=== PATIENT | male | born 1995 | race Caucasian/White ===

== ENCOUNTER 2021-03-31 15:45 | Emergency (ER) | payer BC, OTHER ==
[~2021-03-31] VITALS: Ht 167.6 cm; Wt 95.8 kg
[2021-03-31 16:30] LABS: BASO # 0.1 10^3/uL (0.0-0.2); BASO % 1.6 % (0.0-1.0); EOS # 0.6 10^3/uL (0.0-0.5); EOS % 6.9 % (0.0-3.0); HEMATOCRIT 46.8 % (42.0-52.0); HEMOGLOBIN 15.4 g/dl (13.5-17.5); LYMPH # 2.9 10^3/uL (1.5-5.0); LYMPH % 35.8 % (24.0-44.0); MEAN CORPUSCULAR HEMOGLOBIN 29.2 pg (27.0-33.0); MEAN CORPUSCULAR HGB CONC 32.9 g/dl (32.0-36.5); MEAN CORPUSCULAR VOLUME 88.6 fl (80.0-96.0); MONO # 0.8 10^3/uL (0.0-0.8); MONO % 9.5 % (2.0-8.0); NEUTROPHILS # 3.7 10^3/uL (1.5-8.5); NEUTROPHILS % 46.1 % (36.0-66.0); PLATELET COUNT, AUTOMATED 236 10^3/uL (150-450); RED BLOOD COUNT 5.28 10^6/uL (4.30-6.10)
[2021-03-31 16:56] LABS: ALBUMIN 3.8 GM/DL (3.2-5.2); ALT/SGPT 129 U/L (12-78); BILIRUBIN,DIRECT 0.2 MG/DL (0.0-0.2); BILIRUBIN,TOTAL 0.4 MG/DL (0.2-1.0); BLOOD UREA NITROGEN 19 MG/DL (7-18); CARBON DIOXIDE LEVEL 28 MEQ/L (21-32); CHLORIDE LEVEL 108 MEQ/L (98-107); GLOMERULAR FILTRATION RATE > 60.0 (>60); GLUCOSE, FASTING 106 MG/DL (70-100); LIPASE 153 U/L (73-393); POTASSIUM SERUM 4.1 MEQ/L (3.5-5.1); SODIUM LEVEL 142 MEQ/L (136-145); TOTAL PROTEIN 6.8 GM/DL (6.4-8.2)
[2021-03-31 17:58] LABS: C REACTIVE PROTEIN QUANTITATIV < 0.30 MG/DL (0.00-0.30)
[2021-03-31 18:40] LABS: INR 0.89; PARTIAL THROMBOPLASTIN TIME 24.4 SECONDS (24.2-38.5); PROTHROMBIN TIME 12.2 SECONDS (12.5-14.3)
--- NOTE | 2021-03-31 18:47 | REP ---
INDICATION: elevated LFTs. COMPARISON: 02/28/2016. TECHNIQUE: Real-time sonographic evaluation of right upper quadrant performed. FINDINGS: The gallbladder demonstrates no evidence of intraluminal sludge or calculi, wall thickening or pericholecystic fluid. There is no intrahepatic or extrahepatic biliary dilatation, common bile duct measures 4 mm in maximum diameter. The liver demonstrates homogeneous echotexture with no gross mass. Visualized pancreas is grossly unremarkable, not well seen due to overlying bowel gas. The right kidney demonstrates no hydronephrosis, with a normal size of 11.4 cm in length. No free fluid is seen. IMPRESSION: Negative right upper quadrant ultrasound. <Electronically signed by Kofi Martinez > 03/31/21 [id number]
[2021-03-31] MEDS ORDERED: ANUS25SU PR (19:06)
[2021-03-31 19:16] VITALS: BP 123/65
[2021-03-31 21:16] LABS: ERYTHROCYTE SEDIMENTATION RATE 1 mm/hr (0-15)
== END 2021-03-31 19:18 | disposition home or self-care (01) ==
LOC: M ED 15:45
DX: K62.5 Hemorrhage of anus and rectum (principal); R94.5 Abnormal results of liver function studies; R53.83 Other fatigue; R53.81 Other malaise; Z88.0 Allergy status to penicillin; Z88.2 Allergy status to sulfonamides

== ENCOUNTER → 2021-08-30 | Outpatient (REF) | payer BC ==
[~2021-08-30] MED LIST: ANUS25SU PR
== END ==
LOC: M SFHCCLAY 10:02
PROVIDERS: ATTEND Physician Assistant
DX: R09.81 Nasal congestion (principal)

== ENCOUNTER → 2021-10-15 | Outpatient (REF) | payer BC ==
[2021-10-15 16:28] LABS: INR 0.92; PROTHROMBIN TIME 12.8 SECONDS (12.7-14.5)
[2021-10-15 16:53] LABS: ALT/SGPT 53 U/L (12-78); BILIRUBIN,DIRECT 0.2 MG/DL (0.0-0.2); BILIRUBIN,TOTAL 0.6 MG/DL (0.2-1.0); IRON (FE) 84 UG/DL (65-175); PERCENT SATURATION 25.7 % (19.7-50.0); TOTAL IRON BINDING CAPACITY 327 UG/DL (250-450); TOTAL PROTEIN 7.2 GM/DL (6.4-8.2)
[2021-10-15 17:17] LABS: HEPATITIS B SURFACE ANTIGEN NEGATIVE (NEGATIVE)
[2021-10-15 17:43] LABS: HEPATITIS B CORE ANTIBODY IGM NEGATIVE (NEGATIVE); HEPATITIS C VIRUS ABY INDEX 0.1 INDEX (<0.8)
[2021-10-19 05:07] LABS: ALPHA 1 ANTITRYPSIN 111 mg/dL (95-164); ANCA-ATYPICAL <1:20 titer (Neg:<1:20); ANTI-MITOCHONDRIAL ANTIBODY <20.0 Units (0.0-20.0); ANTINUCLEAR ANTIBODIES DIRECT Negative (Negative); CERULOPLASMIN 19.1 mg/dL (16.0-31.0); COPPER PLASMA 85 ug/dL (63-121); CYTOPLASMIC NEUTROP AB ANCA-C <1:20 titer (Neg:<1:20); LIVER-KIDNEY MICROSOMAL ABY <20.1 Units (0.0-20.0); PERINUCLEAR AB ANCA-P <1:20 titer (Neg:<1:20); TISSUE TRANSGLUTAMINASE IgA <2 U/mL (0-3)
== END ==
LOC: M LABDRAWC 15:42
PROVIDERS: ATTEND Internal Medicine Gastroenterology
DX: K62.5 Hemorrhage of anus and rectum (principal)

== ENCOUNTER → 2021-10-16 | Outpatient (CLI) | payer BC ==
[~2021-10-16] MED LIST changes: +PROHANCE 279.3MG/ML 15ML VIAL As Ordered ONE; +PROHANCE 279.3MG/ML 5ML VIAL As Ordered ONE
== END ==
LOC: M RAD 09:08
PROVIDERS: ATTEND Internal Medicine Gastroenterology
DX: R94.5 Abnormal results of liver function studies (principal)
CPT/HCPCS: 74183; A9576; C8902

== ENCOUNTER → 2021-10-17 | Outpatient (CLI) | payer BC ==
[~2021-10-17] MED LIST changes: -PROHANCE 279.3MG/ML 15ML VIAL As Ordered ONE; -PROHANCE 279.3MG/ML 5ML VIAL As Ordered ONE
== END ==
LOC: M LABSMTC 10:28
PROVIDERS: ATTEND Anesthesiology
DX: Z01.812 Encounter for preprocedural laboratory examination (principal); Z20.822 Contact with and (suspected) exposure to COVID-19

== ENCOUNTER 2021-10-22 11:11 | Day surgery (SDC) | payer BC ==
[~2021-10-22] VITALS: Ht 177.8 cm; Wt 94.3 kg
[~2021-10-22 11:11] MED LIST changes: +NS 1,000 ML IV ONE
--- OUTSIDE RECORDS SUMMARY | 2021-10-22 11:17 | CCD ---
Author Author [facility] Organization [facility] Address Unknown Phone Unavailable Care Team Providers Care School Bus Driver Name Role Phone Wallace Mendoza Unavailable PROBLEMS Type Condition ICD9-CM Code CED94-KI Code Onset Dates Condition S tatus W/U Status Risk SNOMED Code Notes Problem Dorsalgia, unspecified M54.9 Active confirmed 248660169 Problem Other chronic pain G89.29 Active confirmed 8 1621571 Problem Cigarette nicotine dependence in remission F17.211 Active confirmed 650140764 ALLERGIES Allergen (clinical drug ingredient) Drug/Non Drug Allergy do cumented on EMR Reaction Allergy Type Onset Date Status Sulfasalazine Sulfa Antibiotics Anaphylaxis Drug Allergy A ctive penicillin V Penicillin V Potassium([facility] Code:[address]-93) A naphylaxis Drug Allergy Active ENCOUNTERS from 1995 to 2021-09-03 Encounter Location Date Provider Diagnosis [address] [phone] [place] [address] Aug, Wallace Mendoza Nasal congestion R09.81 ; Cough R05.9 an d Exposure to COVID-19 virus Z20.822 IMMUNIZATIONS No Information SOCIAL HISTORY Tobacco Use: Social History Observation Description Date Details (start date - stop date) Former Smoker Sex Assigned At : Social History Observation Description Sex Assigned At Unknown Education: Question Answer Notes Level of Education: Finished High School Audit Question Answer Notes Total Score: 4 Interpretation: Alcohol Education Language: Question Answer Notes Languages spoken: Latvian Tenriism: Question Answer Notes Tenriism 33 None Sexual Hx: Question Answer Notes Had sex in the last 12 months (vaginal, oral, or anal)? Yes Have you ever had an STD? No Prevention Strategies discussed: Other with Women only Use protection? Yes How often? Most of the time Drug and Alcohol Question Answer Notes Total Score: 1 Interpretation: Low level Alcohol Screening: Question Answer Notes Did you have a drink containing alcohol in the past year? Ye s Points 5 Interpretation Positive How often did you have six or more drinks on one occas ion in the past year? Less than monthly (1 point) How many drinks did you have on a typica l day when you were drinking in the past year? 7 to 9 (3 points) How often did you have a drink containing alcohol in t he past year? Monthly or less (1 point) Tobacco Use: Question Answer Notes Are you a: former smoker Quit Nov 2020 How long has it been since you last smoked? 6-12 months REASON FOR REFERRAL No Information VITAL SIGNS Weight 206 lbs Aug, Height 5' 8" in Aug, BMI 31.32 kg/m2 Aug, Heart Rate 82 /min Aug, Respiratory Rate 18 /min Aug, Temperature 98.5 degrees Fahrenheit Aug, Oximetry 98 Aug, Blood pressure systolic 122 mm Hg Aug, Blood pressure diastolic 74 mm Hg Aug, MEDICATIONS No Known Medications PROCEDURES No Information RESULTS Component Value Reference Range THEE COVID AG (Point of Care) Reviewed date:08/30/2021 11:36:17 Interpretation:Negative Performing Lab:[facility], RALS INTERFACE [address] [place] [id number] , ,[facility]01 THEE COVID ANTIGEN NEGATIVE NEGATIVE Coronavirus 2018 NOSE (Send Out) COVID Reviewed date:09/02/2021 09:44:43 Interpretation:Negative Performing Lab:[facility], BIOREFERENCE LABORATORY [address] [place] [address] , ,[facility] CORONAVIRUS 2019 NOSE ASSAY INFORMATION: Real Time RT-PCR CORONAVIRUS 2019 NOSE NOTE: The COVID-19 assay has been cleared by the U.S. Food and Drug CORONAVIRUS 2019 NOSE Administration under the Dora rgency Use Authorization (EUA). [facility] CORONAVIRUS 2019 NOSE Laboratories and [facility] are designated as high complexity laboratories by the CORONAVIRUS 2019 NOSE Clinical Laboratory Improve ent Amendments of 1988(CLIA) and are qualified to CORONAVIRUS 2019 NOSE perform this test. CORONAVIRUS 2019 NOSE CORONAVIRUS 2019 NOSE Not Detected CORONAVIRUS 2019 NOSE REASON FOR VISIT COVID exposure/ symptoms MEDICAL (GENERAL) HISTORY Type Description Date Surgical History No Surgical history information Goals Section No Information Health Concerns No Information MEDICAL EQUIPMENT No Information MENTAL STATUS No Information FUNCTIONAL STATUS No Information ASSESSMENTS Encounter Date Diagnosis Assessment Notes Treatment Notes Treat ent Clinical Notes Aug, Nasal congestion (ICD-10 - R09.81) Aug, Cough (ICD-10 - R05.9) Chris hall have a viral infection at this time. Unfortunately, antibiotics do not help with viral infections. They are usually benign and self-limited infections, so treatment is based on symptomatic relief. Rest and drink clear fluids throughout the day. You may use humidification and saline irrigation to help with the congestion. You may also take motrin or tylenol as needed for pain or fever. You are considered to be contagious until you have been fever free for more than 24 hours. Viral infections sometimes may last 10-14 days before resolving completely. However, if symptoms are worsening any time after 5-7 days of illness, especially if you develop a fever or difficulty breathing; please be reevaluated as soon as possible. If you do not have any cardiac or blood pressure problems you may also consider using qrme-dls-vublqea decongestant (i.e. Sudafed) medication as needed. Aug, Exposure to COVID-19 virus (ICD-10 - Z20.822) You have been tested for the Covid-19 virus at this time. As discussed, you must quarantine in the home until testing results have been received. Continue to use masks, social distancing, and sanitizing to prevent further spread of germs to others at home. We will contact you with test results once they are available. If positive, it is likely that Public health will also contact you with further instructions. Please go to the emergency department with any difficulty breathing. Aug, Other Medication/s di scussed with patient and questions answered. RTC as needed for worsening or unresolved symptoms. Patient states understanding and agreement with this plan. PLAN OF TREATMENT Treatment Notes Assessment Notes Clinical Notes Cough Chris hall have a viral infe ction at this time. Unfortunately, antibiotics do not help with viral infections. They are usually benign and self-limited infections, so treatment is based on symptomatic relief. Rest and drink clear fluids throughout the day. You may use humidification and saline irrigation to help with the congestion. You may also take motrin or tylenol as needed for pain or fever. You are considered to be contagious until you have been fever free for more than 24 hours. Viral infections sometimes may last 10-14 days before resolving completely. However, if symptoms are worsening any time after 5-7 days of illness, especially if you develop a fever or difficulty breathing; please be reevaluated as soon as possible. If you do not have any cardiac or blood pressure problems you may also consider using umtk-ndz-jumfexz decongestant (i.e. Sudafed) medication as needed. Exposure to COVID-19 virus You have been tested for th e Covid-19 virus at this time. As discussed, you must quarantine in the home until testing results have been received. Continue to use masks, social distancing, and sanitizing to prevent further spread of germs to others at home. We will contact you with test results once they are available. If positive, it is likely that Public health will also contact you with further instructions. Please go to the emergency department with any difficulty breathing. Next Appt Details 2 - 3 Days unless improving Reason: Provider Name:Mercedes Gallardo, 2022-06 09:30:00 AM, [address] , , [place], [address], Insurance Providers Payer Name Payer Address Payer Phone Insured Name Patient Relati onship to Insured Coverage Start Date Coverage End Date [place] [address] [address] [facility] [id number] [phone] Nikos Shaikh
--- OUTSIDE RECORDS SUMMARY | 2021-10-22 11:17 | CCD ---
Author Author [facility] Organization [facility] Address Unknown Phone Unavailable Care Team Providers Care Transformation Lead Name Role Phone [place], Wallace Unavailable PROBLEMS Type Condition ICD9-CM Code CIR89-ER Code Onset Dates Condition S tatus W/U Status Risk SNOMED Code Notes Problem Dorsalgia, unspecified M54.9 Active confirmed 739880790 Problem Other chronic pain G89.29 Active confirmed 8 1143130 Problem Cigarette nicotine dependence in remission F17.211 Active confirmed 522338272 ALLERGIES Allergen (clinical drug ingredient) Drug/Non Drug Allergy do cumented on EMR Reaction Allergy Type Onset Date Status Sulfa (for allergy use only) Anaphylaxis Drug Allergy Active penicillin V Penicillin V Potassium([facility] Code:[address]-90) A naphylaxis Drug Allergy Active ENCOUNTERS from 1995 to 2021-08-29 Encounter Location Date Provider Diagnosis [address] [phone] [place] [address] 14 Aug, 2021 Wallace Mendoza IMMUNIZATIONS No Information SOCIAL HISTORY Tobacco Use: Social History Observation Description Date Details (start date - stop date) Former Smoker Sex Assigned At : Social History Observation Description Sex Assigned At Unknown Education: Question Answer Notes Level of Education: Finished High School Audit Question Answer Notes Total Score: 4 Interpretation: Alcohol Education Language: Question Answer Notes Languages spoken: Albanian Zoroastrian: Question Answer Notes Zoroastrian 33 None Sexual Hx: Question Answer Notes [...] REASON FOR REFERRAL No Information VITAL SIGNS No information MEDICATIONS No Information PROCEDURES No Information RESULTS No Results REASON FOR VISIT COVID exposure, symptoms MEDICAL (GENERAL) HISTORY Type Description Date Surgical History No know Surgical history Goals Section No Information Health Concerns No Information MEDICAL EQUIPMENT No Information MENTAL STATUS No Information FUNCTIONAL STATUS No Information ASSESSMENTS No Information PLAN OF TREATMENT Next Appt Details Provider Name:Wallace Mendoza, 2021-08-30 09:15:00 AM, [address] , , [place], [address], Provider Name:Mercedes Gallardo, 2022-06 09:30:00 AM, [address] , , [place], [address], Insurance Providers Payer Name Payer Address Payer Phone Insured Name Patient Relati onship to Insured Coverage Start Date Coverage End Date [place] [address] [address] [place] [address] [phone] Nikos Shaikh
--- OUTSIDE RECORDS SUMMARY | 2021-10-22 11:17 | CCD ---
Author Author [facility] Organization [facility] Address Unknown Phone Unavailable Care Team Providers Care Comb Capper Name Role Phone BETINA, Iliana ALCARAZ Unavailable Unavailable LETTIERE, Iliana ALCARAZ Unavailable Unavailable LETTIERE, Iliana ALCARAZ Unavailable Unavailable LETTIERE, Iliana ALCARAZ Unavailable Unavailable LETTIERE, Iliana ALCARAZ Unavailable Unavailable LETTIERE, Iliana ALCARAZ Unavailable Unavailable LETTIERE, Iliana ALCARAZ Unavailable Unavailable LETTIERE, Iliana ALCARAZ Unavailable Unavailable LETTIERE, Iliana COLVIN PA Unavailable Unavailable LETTIERE, Iliana COLVIN PA Unavailable Unavailable LETTIERE, Iliana COLVIN PA Unavailable Unavailable LETTIERE, Iliana COLVIN PA Unavailable Unavailable LETTIERE, Iliana COLVIN PA Unavailable Unavailable LETTIERE, Iliana COLVIN PA Unavailable Unavailable LETTIERE, Iliana COLVIN PA Unavailable Unavailable LETTIERE, Iliana COLVIN PA Unavailable Unavailable LETTIERE, Iliana COLVIN PA Unavailable Unavailable LETTIERE, Iliana COLVIN PA Unavailable Unavailable LETTIERE, Iliana COLVIN PA Unavailable Unavailable LETTIERE, Iliana COLVIN PA Unavailable Unavailable LETTIERE, Iliana COLVIN PA Unavailable Unavailable LETTIERE, Iliana COLVIN PA Unavailable Unavailable LETTIERE, A VINICIUS PA Unavailable Unavailable LETTIERE, A VINICIUS PA Unavailable Unavailable LETTIERE, A VINICIUS PA Unavailable Unavailable LETTIERE, A VINICIUS PA Unavailable Unavailable LETTIERE, A VINICIUS PA Unavailable Unavailable LETTIERE, A VINICIUS PA Unavailable Unavailable LETTIERE, A VINICIUS PA Unavailable Unavailable LETTIERE, A VINICIUS PA Unavailable Unavailable LETTIERE, A VINICIUS PA Unavailable Unavailable Re-disclosure Warning The records that you are about to access may contain information from federally-assisted alcohol or drug abuse programs. If such information is present, then the following federally mandated warning applies: This information has been disclosed to you from records protected by federal confidentiality rules (42 CFR part 2). The federal rules prohibit you from making any further disclosure of this information unless further disclosure is expressly permitted by the written consent of the person to whom it pertains or as otherwise permitted by 42 CFR part 2. A general authorization for the release of medical or other information is NOT sufficient for this purpose. The Federal rules restrict any use of the information to criminally investigate or prosecute any alcohol or drug abuse patient.The records that you are about to access may contain highly sensitive health information, the redisclosure of which is protected by Article 27-F of the [facility] Public Health law. If you continue you may have access to information: Regarding HIV / AIDS; Provided by facilities licensed or operated by the [facility] Office of Mental Health; or Provided by the [facility] Office for People With Developmental Disabilities. If such information is present, then the following [facility] mandated warning applies: This information has been disclosed to you from confidential records which are protected by state law. State law prohibits you from making any further disclosure of this information without the specific written consent of the person to whom it pertains, or as otherwise permitted by law. Any unauthorized further disclosure in violation of state law may result in a fine or mcfp sentence or both. A general authorization for the release of medical or other information is NOT sufficient authorization for further disc losure. Family History Family Member Name Family Member Gender Family Member Status Date o f Status Description Data Source(s) Unknown Unknown Problem MEDENT ([facility]) Encounters Encounter Providers Location Date Indications Data Source(s ) Outpatient [address], [facility] [phone] 08/30/2021 12:00:00 AM EDT eCW1 ([facility]) Unknown [address] [address] 08/29/2021 12:00:00 AM EDT eCW1 ([facility]) Outpatient Attender: VINICIUS martinez 06/21/2021 03:00:00 PM EDT MEDENT ([facility] , [facility]) [place] [address] [address] 06/12/2021 12:00:00 AM EDT eCW1 ([facility]) Immunizations Vaccine Date Status Description Data Source(s) COVID-19 VACCINE Moderna 04/04/2021 12:00:00 AM EDT completed [facility] Vaccine Series Complete: YESThis Data wa s Submitted to [facility] [employer]. COVID-19 VACCINE Moderna 03/07/2021 12:00:00 AM EDT completed [facility] Vaccine Series Complete: NOThis Data was Submitted to [facility] [employer]. Medications Medication Brand Name Start Date Product Form Dose Route Admi nistrative Instructions Pharmacy Instructions Status Indications Reaction Description Data Source(s) Cyclobenzaprine hydrochloride 10 MG Oral Tablet CYCLOBENZAPR INE HCL 06/21/2021 12:00:00 AM EDT tablet 14 TAKE ONE TABLET BY MOUTH AT BEDTIME TAKE ONE TABLET BY MOUTH AT BEDTIME SOLD: 06/21/2021 [facility] 800 mg 06/21/2021 12:00:00 AM EDT tablet 50 TAKE ONE TABLET BY MOUTH EVERY 6 TO 8 HOURS WITH FOOD TAKE ONE TABLET BY MOUTH EVERY 6 TO 8 HOURS WITH FOOD SOLD: 06/21/2021 [facility] Ibuprofen 800 MG Oral Tablet Ibuprofen 06/21/2021 12:00:00 AM EDT active MEDENT ([facility], [facility]) Cyclobenzaprine hydrochloride 10 MG Oral Tablet Cyclobenzapr ine HCL 06/21/2021 12:00:00 AM EDT active M EDENT ([facility], [facility]) Insurance Providers Payer name Policy type / Coverage type Policy ID Covered libertarian ID Covered libertarian's relationship to quintana Policy Quintana Plan Information [facility] [facility] FED[employer] PRO[employer] [id number] [id number] [facility] [id number] [id number] [facility] [id number] [facility] [id number] CHILD [id number] [employer] [place] PIP[employer] PASSES [id number] CHILD [id number] BCBS EXCELLUS [id number] PARENT [id number] [employer] FINANCIAL UNAVAILABLE S UNAVAILABLE SELF PAY UNAVAILABLE S UNAVAILA BLE ANSI-Commercial [id number] Problems, Conditions, and Diagnoses Code Display Name Description Problem Type Effective Dates Data Source(s) F17.211 [id number] Cigarette nicotine dependence in freddieissio n Problem 06/12/2021 12:00:00 AM EDT eCW1 ([facility]) G89.29 05505281 Other chronic pain Problem 06/12/2021 12:00: 00 AM EDT eCW1 ([facility]) M54.9 [id number] Dorsalgia, unspecified Problem 06/12/2021 12 :00:00 AM EDT eCW1 ([facility]) Surgeries/Procedures Procedure Description Date Indications Data Source(s) OFFICE OUTPATIENT NEW 30 MINUTES 06/21/2021 12:00:00 A M EDT MEDENT ([facility], [facility]) Results ID Date Data Source [id number] 10/17/2021 09:45:00 AM EST [facility] Name Value Range Interpretation Code Description Data Isbaella rce(s) Supporting Document(s) SARS-CoV-2 (COVID-19) RNA [Presence] in Respiratory specimen by SALLIE with probe detection Not Detected [facility] This lab was ordered by [facility] and reported by [employer] ID Date Data Source [id number] 08/30/2021 09:23:00 AM EDT [facility] Name Value Range Interpretation Code Description Data Isabella rce(s) Supporting Document(s) SARS COVID ANTIGEN NEGATIVE [facility] This lab was ordered by [facility] ray nd reported by [facility]. ID Date Data Source Coronavirus 2019 NOSE (Send Out) COVID 08/30/2021 12:00:00 A M EDT eCW1 ([facility]) Name Value Range Interpretation Code Description Data Isabella rce(s) Supporting Document(s) ASSAY INFORMATION: Real Time RT-PCR CORONAVIRUS 2019 NOSE eCW1 ([facility]) ID Date Data Source THEE COVID AG (Point of Care) 08/30/2021 12:00:00 AM EDT eC W1 ([facility]) Name Value Range Interpretation Code Description Data Isabella rce(s) Supporting Document(s) NEGATIVE NEGATIVE THEE COVID ANTIGEN eCW1 ([facility]) Procedure Social History Code Duration Value Status Description Data Source(s ) Smoking 08/30/2021 12:00:00 AM EDT Former Smoker completed Former Smoker eCW1 ([facility]) Smoking 06/21/2021 12:00:00 AM EDT Marajuana Smoker completed Mar ajuana Smoker MEDENT ([facility]) Smoking 06/12/2021 12:00:00 AM EDT Former Smoker completed Former Smoker eCW1 ([facility]) Smoking 06/12/2021 12:00:00 AM EDT Former Smoker completed Former Smoker eCW1 ([facility]) Vital Signs ID Date Data Source UNK Name Value Range Interpretation Code Description Data Source(s) Body weight 206 [lb_av] 206 [lb_av] eCW1 ([facility]) Body height [in_i] eCW1 ([facility]) Body mass index (BMI) [Ratio] 31.32 kg/m2 31.32 kg/m2 eCW1 ([facility]) Heart rate 82 /min 82 /min eCW1 ([facility] hospital) Respiratory rate 18 /min 18 /min eCW1 ([facility]) Body temperature 98.5 [degF] 98.5 [degF] eCW1 ( [facility]) Systolic blood pressure 122 mm[Hg] 122 mm[Hg] e CW1 ([facility]) Diastolic blood pressure 74 mm[Hg] 74 mm[Hg] eCW1 ([facility]) Systolic blood pressure 115 mm[Hg] 115 mm[Hg] M EDENT ([facility], [facility]) Diastolic blood pressure 80 mm[Hg] 80 mm[Hg] MEDENT ([facility], [facility]) Heart rate 59 /min 59 /min MEDENT ([facility], [facility]) Respiratory rate 15 /min 15 /min MEDENT ( [facility], [facility]) Oxygen saturation in Arterial blood by Pulse oximetry 99 % 99 % MEDENT ([facility], [facility]) Body temperature 97.4 [degF] 97.4 [degF] MEDENT ([facility], [facility]) Body weight 206.00 [lb_av] 206.00 [lb_av] MEDEN T ([facility], [facility]) Body height 68 [in_i] 68 [in_i] MEDENT ([facility], [facility]) 5'8" Body mass index (BMI) [Ratio] 31.3 kg/m2 31.3 k g/m2 MEDENT ([facility], [facility]) Body weight 206 [lb_av] 206 [lb_av] eCW1 ([facility]) Body height [in_i] eCW1 ([facility]) Body mass index (BMI) [Ratio] 31.32 kg/m2 31.32 kg/m2 [facility] ([facility]) Heart rate 60 /min 60 /min eCW1 ([facility] hospital) Respiratory rate 18 /min 18 /min eCW1 ([facility]) Body temperature 98.6 [degF] 98.6 [degF] eCW1 ( [facility]) Systolic blood pressure 122 mm[Hg] 122 mm[Hg] e CW1 ([facility]) Diastolic blood pressure 82 mm[Hg] 82 mm[Hg] eCW1 ([facility])
[2021-10-22] MEDS ORDERED: dexameTHASONE 4 MG/ML 1ML VIAL (J1100 PER 1MG) As Ordered ONE (13:31)
[2021-10-22] MEDS ORDERED: propofoL 200 MG/20 ML VIAL As Ordered ONE (13:36)
[2021-10-22] MEDS ORDERED: LIDOCAINE 2% 100MG/5ML SDV (FOR ANES.) As Ordered ONE (13:37)
--- NOTE | 2021-10-22 13:57 | ROOR ---
Patient Name: Иван Chapman Procedure Date: 10/22/2021 1:26 PM Date of : 1995 Age: 25 Room: [facility] Gender: Male Note Status: Finalized Procedure: Colonoscopy Indications: Hematochezia Providers: Cleve Martines MD Referring MD: Mercedes BERTRAND DO Requesting Provider: Medicines: Monitored Anesthesia Care Complications: No immediate complications. Procedure: Pre-Anesthesia Assessment: - The heart rate, respiratory rate, oxygen saturations, blood pressure, adequacy of pulmonary ventilation, and response to care were monitored throughout the procedure. The Colonoscope was introduced through the anus and advanced to 10 cm into the ileum. The colonoscopy was performed without difficulty. The patient tolerated the procedure well. The quality of the bowel preparation was good. Findings: The perianal and digital rectal examinations were normal. A 6 mm polyp was found in the hepatic flexure. The polyp was sessile. The polyp was removed with a cold snare. Resection and retrieval were complete. Mild sigmoid diverticulosis and small internal hemorrhoids. The exam was otherwise without abnormality on direct and retroflexion views. Impression: - Small internal hemorrhoids. - Mild sigmoid diverticulosis - One 6 mm polyp at the hepatic flexure, removed with a cold snare. Resected and retrieved. - The examination was otherwise normal on direct and retroflexion views. Recommendation: - Repeat colonoscopy in 5 years for surveillance. Procedure Code(s): --- Professional --- 76645, Colonoscopy, flexible; with removal of tumor(s), polyp(s), or other lesion(s) by snare technique Diagnosis Code(s): --- Professional --- K92.1, Melena (includes Hematochezia) K63.5, Polyp of colon CPT copyright 2019 [employer]. All rights reserved. The codes documented in this report are preliminary and upon commercial parts professional review may be revised to meet current compliance requirements. Cleve Martines MD Cleve Martines MD 10/22/2021 1:56:52 PM Electronically signed by Cleve Martines MD Number of Addenda: 0 Note Initiated On: 10/22/2021 1:26 PM Estimated Blood Loss: Estimated blood loss: none.
[2021-10-22 14:20] VITALS: BP 116/60
== END 2021-10-22 14:34 | disposition home or self-care (01) ==
LOC: M OPP 11:11
PROVIDERS: ATTEND Internal Medicine Gastroenterology
DX: K92.1 Melena (principal); D12.3 Benign neoplasm of transverse colon; K57.30 Diverticulosis of large intestine without perforation or abscess without bleeding; K64.8 Other hemorrhoids; Z80.0 Family history of malignant neoplasm of digestive organs; Z88.0 Allergy status to penicillin; Z88.2 Allergy status to sulfonamides
CPT/HCPCS: 45385; 88305; J1100

== ENCOUNTER 2025-10-21 23:52 | Inpatient (IN) | payer OTHER, SELFPAY ==
[~2025-10-21] VITALS: Ht 167.6 cm; Wt 92.5 kg
[~2025-10-21 23:52] MED LIST changes: -NS 1,000 ML IV ONE
[2025-10-22] MEDS ORDERED: LIDOCAINE 2% W/EPINEPHrine 20 ML VIAL **PRES FREE As Ordered ONE (00:02)
[2025-10-22] MEDS ORDERED: ISOVUE-370 76% 100 ML VIAL As Ordered ONE (00:26)
[2025-10-22] MEDS: TETANUS/DIPHTH/ACEL. PERTUSSIS 0.5 ML SYR IM.IMMUN ONE (00:52)
[2025-10-22 01:22] LABS: ETHYL ALCOHOL (ETHANOL) < 0.003 % (0.000-0.010)
[2025-10-22 01:24] LABS: ALT/SGPT 29 U/L (7.0-40); AST/SGOT 24 U/L (<34); CALCIUM LEVEL 8.9 MG/DL (8.5-10.1); CARBON DIOXIDE LEVEL 26 MMOL/L (20-31); CHLORIDE LEVEL 106 MMOL/L (98-107); CREATININE FOR GFR 1.00 MG/DL (0.70-1.30); GLOMERULAR FILTRATION RATE > 90.0 (>60); POTASSIUM SERUM 4.3 MMOL/L (3.5-5.1); SALICYLATE LEVEL < 3.0 MG/DL (<30); SODIUM LEVEL 141 MMOL/L (136-145)
[2025-10-22 01:28] LABS: PLATELET COUNT, AUTOMATED 267 10^3/uL (150-450)
[2025-10-22] MEDS: DOXYCYCLINE HYCLATE 100 MG TABLET PO ONE (02:39)
[2025-10-22 03:48] LABS: AMPHETAMINES LEVEL URINE NEGATIVE (NEGATIVE); BARBITURATES URINE NEGATIVE (NEGATIVE); BENZODIAZEPINES URINE NEGATIVE (NEGATIVE); COCAINE METABOLITE URINE NEGATIVE (NEGATIVE); METHADONE URINE NEGATIVE (NEGATIVE); OPIATES URINE NEGATIVE (NEGATIVE); PHENCYCLIDINE URINE NEGATIVE (NEGATIVE)
[2025-10-22 03:49] LABS: CANNABINOIDS URINE POSITIVE (NEGATIVE)
[2025-10-22] MEDS: NEOSPORIN OINT 0.9 GM PKT TOP ONE (04:00)
[2025-10-22] MEDS ORDERED: MOM 30 ML SUSPENSION UDC PO PRN (05:45)
[2025-10-22] MEDS ORDERED: OLANZapine 5 MG TAB PO PRN (05:45)
[2025-10-22] MEDS ORDERED: MAALOX 30 ML SUSP *UDC PO PRN (05:45)
[2025-10-22] MEDS ORDERED: ACETAMINOPHEN 325 MG TAB PO PRN (05:45)
[2025-10-22] MEDS: IBUPROFEN 400 MG TAB PO PRN (07:17)
[2025-10-22] MEDS: DOXYCYCLINE HYCLATE 100 MG TABLET PO SCH (09:00)
[2025-10-22] MEDS ORDERED: HOME MED LIST COMPLETE! XX SCH (10:20)
[2025-10-22 10:24] VITALS: BP 142/76; TEMP 97.2; O2SAT 98
[2025-10-22 15:23] VITALS: BP 134/91; TEMP 97.1; O2SAT 96
[2025-10-23 06:25] VITALS: BP 125/69; TEMP 97.9; O2SAT 100
[2025-10-23 15:19] VITALS: BP 142/86; TEMP 97.2; O2SAT 97
[2025-10-23] MEDS: traZODone 50 MG TAB PO PRN (23:36)
[2025-10-24 06:32] VITALS: BP 153/82; TEMP 97.8; O2SAT 97
[2025-10-24 18:46] VITALS: BP 125/83; TEMP 97.9
[2025-10-24] MEDS ORDERED: TRAZ-252 PO (19:23)
[2025-10-24] MEDS ORDERED: DOXY100T PO (19:23)
[2025-10-24] MEDS ORDERED: DULO1CAP5 PO (19:23)
[2025-10-25 06:32] VITALS: BP 140/85; TEMP 97.3; O2SAT 97
== END 2025-10-25 11:07 | disposition home or self-care (01) | DRG 751 ==
LOC: EDBD 23:52 → M ED 23:52 → M ED INP 10-22 06:06 → M PSY 10-22 10:26
PROVIDERS: ADMIT Psychiatry & Neurology Neurology; ATTEND Psychiatry & Neurology Neurology
DX: F33.1 Major depressive disorder, recurrent, moderate (principal); R45.851 Suicidal ideations; F41.1 Generalized anxiety disorder; F41.0 Panic disorder [episodic paroxysmal anxiety]; Z59.89 Other problems related to housing and economic circumstances; Z88.0 Allergy status to penicillin; Z88.2 Allergy status to sulfonamides

== ENCOUNTER 2025-11-01 19:44 | Emergency (ER) | payer OTHER ==
[~2025-11-01] VITALS: Ht 167.6 cm; Wt 99.6 kg
[~2025-11-01 19:44] MED LIST changes: +DOXY100T PO; +DULO1CAP5 PO; +TRAZ-252 PO
[2025-11-01 21:05] VITALS: BP 124/68; TEMP 97.8; O2SAT 100
== END 2025-11-01 21:08 | disposition home or self-care (01) ==
LOC: M ED 19:44
DX: Z48.02 Encounter for removal of sutures (principal); F17.200 Nicotine dependence, unspecified, uncomplicated; Z88.0 Allergy status to penicillin; Z88.2 Allergy status to sulfonamides; Z79.899 Other long term (current) drug therapy